=== PATIENT | female | born 1950 | race Caucasian/White ===

== ENCOUNTER → 2022-03-07 09:13 | Outpatient (CLI) | payer MEDICARE, OTHER, SELFPAY ==
[2022-03-07 09:54] LABS: Appearance Urine UA CLEAR; Bilirubin Urine UA NEGATIVE (NEGATIVE); Color Urine UA YELLOW; Glucose Urine UA NEGATIVE (Negative); Ketones Urine UA NEGATIVE (NEGATIVE); Leukocyte Esterase Urine UA 1+ (NEGATIVE); Nitrite Urine UA NEGATIVE (Negative); Occult Blood Urine UA NEGATIVE (Negative); Protein Urine UA NEGATIVE (Negative); Specific Gravity Urine UA <=1.005 (1.000-1.035); Urobilinogen Urine UA 0.2 E.U./dL (0.2)
[2022-03-07 10:11] LABS: Add Manual Diff / Slide Review NO; Basophils Absolute Auto 100 /uL (0-100); Basophils Percent Auto 0.9 % (0-2); Eosinophils Absolute Auto 200 /uL (0-450); Eosinophils Percent Auto 3.6 % (2-4); Hemoglobin 13.4 g/dL (12.0-16.0); Lymphocytes Absolute Auto 1600 /uL (1100-4500); Mean Corpuscular HGB Conc 33.6 % (30-36); Mean Corpuscular Hemoglobin 30.5 PG (26-34); Mean Corpuscular Volume 90.8 fL (80-100); Monocytes Absolute Auto 600 /uL (0-900); Neutrophils Absolute Auto 3400 /uL (1500-7000); Neutrophils Percent Auto 58.5 % (50-75); Platelet Count 298 X10^3/uL (150-400); Red Cell Distribution Width 12.7 % (11.6-14.8); White Blood Cell Count 5.8 X10^3/uL (4.5-11.0)
[2022-03-07 10:27] LABS: Bacteria Urine Occasional (0-1); Culture Indicated Urine Specimen Cultured; RBC Urine 0-1/HPF (0-5/HPF); Squamous Epithelial Cell Urine 1-5 /HPF (0-5/HPF); WBC Urine 0-1/HPF (0-5/HPF)
[2022-03-07 10:39] LABS: Hemoglobin A1C% w Est Avg Glu 5.7 % (4.0-6.0)
[2022-03-07 11:40] LABS: BUN Creatinine Ratio 31.9 (6-22); Blood Urea Nitrogen 22 mg/dL (7-17); Calcium 9.2 mg/dL (8.4-10.2); Carbon Dioxide 28 mmol/L (22-32); Chloride 102 mmol/L (98-107); Estimated Glomerular Filt Rate > 60 mL/min (>60); Glucose 110 mg/dL (80-110); HEMOLYSIS 17 (0-50); Potassium 4.3 mmol/L (3.4-5.1); Sodium 138 mmol/L (137-145)
== END ==
PROVIDERS: PCP Physician Assistant; Referring Provider Orthopaedic Surgery; Visit Provider Orthopaedic Surgery
DX: Z01.818 Encounter for other preprocedural examination (principal); R73.9 Hyperglycemia, unspecified; Z01.812 Encounter for preprocedural laboratory examination; N39.0 Urinary tract infection, site not specified
CPT/HCPCS: 36415; 80048; 81001; 83036; 85025; 87077; 87086; 87186; 93005; 93010

== ENCOUNTER → 2022-04-23 11:10 | Outpatient (CLI) | payer MEDICARE, OTHER, SELFPAY ==
[2022-04-23 11:37] LABS: COVID19 -Nasal RAPID Negative (Negative)
== END ==
PROVIDERS: PCP Physician Assistant; Referring Provider Orthopaedic Surgery; Visit Provider Orthopaedic Surgery
DX: Z20.822 Contact with and (suspected) exposure to COVID-19 (principal); Z11.59 Encounter for screening for other viral diseases
CPT/HCPCS: 87635; C9803

== ENCOUNTER 2022-04-25 14:34 | Observation (INO) | payer MEDICARE, OTHER, SELFPAY ==
[2022-04-16 08:20] VITALS: BMI 31.7
[2022-04-24] VITALS (12 sets, daily range): BP systolic 108–139; BP diastolic 52–76; PULSE 54–73; RESP 16–28; TEMP 35.2–37.3; O2SAT 94–100; BMI 31.7
--- NOTE | 2022-04-24 07:43 | DI.RAD.S_ITS ---
PROCEDURE: XR KNEE RT 1TO2V INDICATIONS: TKA TECHNIQUE: 2 view(s) of the knee acquired. COMPARISON: [facility] Titus Sullivan, CR, XR KNEE ARTHRITIC SERIES BI, 02/23/2022, 8:35. FINDINGS: Bones: Patient is status post knee joint arthroplasty. Hardware components are in expected positions. Visualized bony structures are intact. Soft tissues: Overlying postoperative changes are noted. IMPRESSION: Expected immediate postoperative appearance of left TKA. Dictated by: Obed OLSEN Interpreted: Marietta Robbins MD on 04/24/2022 at 16:19 Transcribed by: IAIN on 04/24/2022 at 16:19 Approved by: Marietta Robbins M.D. on 04/26/2022 at 7:35
[2022-04-24] MEDS: CELECOXIB 200 MG CAPSULE PO (12:55)
[2022-04-24] MEDS: ACETAMINOPHEN 325 MG TABLET 975 MG PO (12:56)
[2022-04-24] MEDS: VANCOMYCIN 1,000 MG/200 ML PIGGYBACK 200 MG IV (12:57)
[2022-04-24] MEDS: LACTATED RINGERS 1,000 ML 42 ML IV (12:58)
--- NOTE | 2022-04-24 13:14 | PM.PREOP ---
Pre-operative Note COVID-19 COVID-19 status: Negative Interval Note History & Physical reviewed/Exam performed by Physician: Yes Changes to H&P: No
--- NOTE | 2022-04-24 13:15 | P.OP_ITS ---
Operative Date/Time/Diagnoses Date of procedure: 04/24/22 Time of procedure: 13:55 Pre-op diagnosis: Severe right knee osteoarthritis Post-op diagnosis: same Procedure & Clinicians Procedure: Right total knee arthroplasty Same procedure as scheduled: Yes Indications: The patient has had progressively worsening right knee pain with radiographic changes consistent with arthritis. Non-operative management has failed and the patient has requested total knee replacement. The risks, benefits and alternatives to surgery were discussed with the patient prior to proceeding. Risks discussed included, but were not limited to, failure to relieve pain, stiffness, infection, nerve damage, deep venous thrombosis, pulmonary embolism, stroke, coma, heart attack, permanent paralysis and , as well as the potential need for eventual revision of the prosthetic. Surgeon: Eloise Alvarado Medical Insurance Claims Specialist: Yordan Hewitt Anesthesia Type: General and Spinal Operative Notes Findings: Severe right knee osteoarthritis Closure Type: primary Specimen(s): none sent Prosthetic devices, grafts, tissues, transplants, or devices: Alvarado [employer] Nephew Mirthaney BCS 2 size 5 femur, size 3 tibia, 32 x 7-1/2 mm patella, +9 poly Applied: drain(s) Estimated Blood Loss (mL): 250 Blood products transfused: none Tourniquet time (min): 76 Procedure in detail: The patient was seen in the pre-operative area, where the patient identified the right knee as the operative site and this was marked with my initials. The patient received pre-operative antibiotics, and was taken to the operating room and placed on the operative table in the supine position. After satisfactory anesthesia, a maritime engineer out was performed. The right leg was encircled with a tourniquet about the proximal thigh, and the leg was prepared from the toes to the tourniquet with ChloroPrep in the usual fashion and draped through sterile drapes. The leg was elevated and exsanguinated with Eschmark bandage and the indira rniquet inflated to [250] mmHg pressure. The knee was approached through an approximately 18 cm incision centered over the patella and carried into the knee through a medial parapatellar arthrotomy. A portion of the medial and lateral meniscus was resected. Soft tissue was carefully mobilized around the patella the patella was measured with a caliper. Bone was resected from the patella and the patellar height was reconstituted with up an appropriate sized patellar component. A cover was then placed on the patella. A small amount of additional medial and lateral meniscus was resected. There was a fly in the room. It did land on the drapes but not in the wound. That region was redraped. The fly was killed. The distal femur was cut at 5?. A [+2] cut was used. It looked like an appropr iate distal femoral cut and the cut was made without difficulty. An extramedullary guide was used for the tibial cut. 10 mm was resected off the least affected side.The tibia was prepared. The rotation was assessed. The patient was placed in extension residual medial and lateral meniscus as well as any residual bone was carefully resected. [No] additional tibia was resected. Hemostasis was achieved especially posteriorly. Additional local was injected into the posterior capsule. The extension gap was assessed and additional releases for gap balancing were performed as necessary. It was checked with the gap open hearth worker. The femoral component was trial was placed and the notch was finished. The rotation was assessed and the appropriate size femoral guide was placed on the distal femur and finishing cuts were made. There was no evidence of notching. The anterior, posterior and chamfer cuts were then made. The posterior osteophytes and soft tissues were then removed. The posterior capsule was injected with part of a mixture of 60 ml 0.25% Marcaine mixed with 20 ml Exparel for post operative pain control. The remainder of this mixture was injected into the capsule and subcutaneous tissues during cement curing. The tibial and femoral components were then placed and the knee placed through a range of motion. Range of motion was [0-130], with good stability throughout the range. The trials were then removed, and the tibia was finished. The bone was prepared with pulsatile lavage, and dried with a sponge. Cement was applied and the final prosthetics placed. Excess cement was removed during and after cement curing. A brief Betadine soak was performed. After confirming there was no extruded cement posteriorly, the final tibial insert was placed. The knee was copiously irrigated and the tourniquet deflated. Hemostasis was obtained with the bovie cautery. A drain was placed and brought out superolaterally. The capsule was closed with interrupted nonabsorbable suture. The subcutaneous layer was closed with barbed sutures, and the skin with a running 3-0 V-Lock suture and Surgical glue. An Aquacel Ag dressing was applied and the patient was taken to recovery having tolerated the procedure well. Complications: none Post-operative Condition: stable Disposition: Acute Care Plan for aftercare: The patient will be maintained on a standard total knee replacement protocol with weight bearing as tolerated. The patient will receive aspirin and sequential compression devices for DVT prophylaxis. The patient will be discharged home when safe for the home environment.
[2022-04-24] MEDS: CEFAZOLIN 2 GM/20 ML SYRINGE IV ×2 (13:45→22:41)
[2022-04-24] MEDS: TRANEXAMIC ACID 1,000 MG VIAL 1000 MG INJ ×2 (13:50→15:37)
--- NOTE | 2022-04-24 15:15 | SUR.OPER ---
Supine on padded OR bed. Pillow under head, arms secured on padded armboards <90 degree abduction. Safety belt across torso. Non-operative leg secured with tape over blanket over lower leg. Operative leg secured in DeMayo/Srinivasa/Nathe positioner. Foam padded hip family services manager brace at thigh of operative leg. Tourniquet padded and applied Directed and approved by surgeon
[2022-04-24] MEDS: BUPIVACAINE LIPOSOME 266 MG/20 ML VIAL INJ (15:35)
[2022-04-24] MEDS: BUPIVACAINE 0.5% W/ EPI (PF) 30 ML VIAL INJ (15:36)
--- NOTE | 2022-04-24 16:26 | SUR.PHASEI ---
Patient still denies any pain; sitting up drinking beverage. VSS. Awaiting transfer orders to floor.
[2022-04-24] MEDS: ONDANSETRON 4 MG/2 ML INJ IV (17:24)
[2022-04-24] MEDS: LACTATED RINGERS 1,000 ML 100 ML IV (17:24)
[2022-04-24] MEDS: ACETAMINOPHEN 325 MG TABLET 650 MG PO (17:57)
--- NOTE | 2022-04-24 18:57 | PC.NURSE ---
Ortho: Received from PACU. has no pain. Does have some nausea which improved with zofran. Minimal diet taken. No void since surgery. RA sats are 95% however pt reports she is feeling some air hunger. RT made aware and they are coming to eval her and set up cpap machine. Neurovascular intact. PPP, brisk cap refill. Dressing intact.
[2022-04-24] MEDS: METOPROLOL ER 25 MG TABLET PO (20:47)
[2022-04-24] MEDS: DOCUSATE 100 MG CAPSULE PO (20:47)
[2022-04-24] MEDS: ASPIRIN EC 81 MG TABLET PO (20:47)
[2022-04-24] MEDS: TRAMADOL 50 MG TABLET PO (22:45)
[2022-04-25] MEDS: ACETAMINOPHEN 325 MG TABLET 650 MG PO ×3 (01:29→12:55)
[2022-04-25 03:30] VITALS: BP 97/42; PULSE 58; RESP 17; TEMP 35.9; O2SAT 100
[2022-04-25 05:44] LABS: Hematocrit 32.2 % (36-46); Hemoglobin 11.1 g/dL (12.0-16.0)
[2022-04-25] MEDS: TRAMADOL 50 MG TABLET PO ×2 (06:08→12:56)
[2022-04-25] MEDS: CEFAZOLIN 2 GM/20 ML SYRINGE IV (06:09)
--- NOTE | 2022-04-25 07:44 | P.DS_ITS ---
History of Present Illness History of Present Illness Date Patient Seen: 04/25/22 Time Patient Seen: 07:45 Chief complaint: Knee pain Narrative: Right knee pain is mild. Denies fever or chills. No nausea vomiting. Patient has her home to assist her. Otherwise without complaints. Discharge Providers Provider Discharge Date: 04/25/22 Primary care physician: Alexandra Cintron PA-C Consults: 04/24/22 07:43 Consult to Anesthesiology Routine Comment: Consulting Provider: Anesthesiologist Reason for consultation: Regional block for post operative pain control 04/24/22 13:09 Consult to Respiratory Therapy Evaluate & Treat Comment: Physician Instructions: Evaluate and treat 04/24/22 16:46 Consult to Discharge Planning Routine Comment: Consult to Physical Therapy Evaluate & Treat Comment: Physician Instructions: postop TKA protocol Consult to Respiratory Therapy Evaluate & Treat Comment: Physician Instructions: Evaluate and treat Discharge provider: Yordan Hewitt PA-C Summary Hospital Course Discharge Diagnosis: Severe right knee osteoarthritis Hospital Course: Right total knee arthroplasty Same procedure as scheduled: Yes Indications: The patient has had progressively worsening right knee pain with radiographic changes consistent with arthritis. Non-operative management has failed and the patient has requested total knee replacement. The risks, benefits and alternatives to surgery were discussed with the patient prior to proceeding. Risks discussed included, but were not limited to, failure to relieve pain, stiffness, infection, nerve damage, deep venous thrombosis, pulmonary embolism, stroke, coma, heart attack, permanent paralysis and , as well as the potential need for eventual revision of the prosthetic. Surgeon: Eloise Alvarado Kennel Manager Dog Track: Yordan Hewitt Anesthesia Type: General and Spinal Operative Notes Findings: Severe right knee osteoarthritis Closure Type: primary Specimen(s): none sent Prosthetic devices, grafts, tissues, transplants, or devices: [employer] Nephew Journey BCS 2 size 5 femur, size 3 tibia, 32 x 7-1/2 mm patella, +9 poly Applied: drain(s) Estimated Blood Loss (mL): 250 Blood products transfused: none Tourniquet time (min): 76 Patient admitted to the hospital for right total knee arthroplasty. Patient consented to the same. Patient underwent right total knee arthroplasty on April 24, 2022. Patient back in her room recovering well as in stable condition. Patient will be discharged home after physical therapy if safe for home environment. Status at Discharge Cognitive/behavioral status at discharge: at baseline, oriented Functional status at discharge: uses cane/walker Overall status at discharge: patient is progressing back to baseline Exam Vital Signs (past 8 hours): - 04/25/22 03:30 Temperature 96.6 F L Pulse Rate 58 L Respiratory Rate 17 Blood Pressure 97/42 L Pulse Oximetry 100 Oxygen Flow Rate 0 Oxygen Delivery Method Room Air Oxygen Flow Rate 0 Narrative Exam Narrative: 72-year-old female resting comfortably in bed no apparent distress. Kareem dressing is on and functioning. Dressing is Clean, dry, intact.. Motor functions intact bilateral lower extremities. Sensation grossly intact to light touch bilateral lower extremities. 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) Headache Hearing impaired HTN (hypertension) Lichen planopilaris NEY (obstructive sleep apnea) Osteoarthritis Palpitations Pre-diabetes Seasonal allergies Sinus drainage SVT (supraventricular tachycardia) Surgical History History of arthroplasty of left knee (2015) History of hysterectomy History of lumpectomy of left breast (2019) Hx of arthroscopy of right knee (~2001) Social History household members: spouse Smoking Status: Never smoker alcohol intake: former Discharge Assessment & Plan Assessment and Plan Assessment: Patient progressing as expected status post right total knee arthroplasty Plan of Treatment: Mobilize with physical therapy, patient will be maintained on standard total knee protocol Multimodal pain management Discharge home today after physical therapy if safe for home environment. Discharge Plan Discharge Plan Patient Disposition: Home Provider Discharge Comment: Discharge home today after physical therapy Discharge orders & Medications Discharge Orders: Discharge (Order); Ordered 04/25/22 Ordered By: Yordan Hewitt Prescriptions: New acetaminophen 325 mg Tablet 650 mg PO Q6HR Qty: 60 0RF aspirin 81 mg Tablet,Delayed Release (Dr/Ec) 81 mg PO BID Qty: 60 0RF tramadol 50 mg Tablet 50 mg PO Q6H PRN (Reason: Pain, Moderate (4-6)) Qty: 60 0RF ibuprofen 400 mg Tablet 400 mg PO Q4HR Qty: 60 0RF Continued losartan 50 mg Tablet 50 mg PO DAILY cetirizine [Zyrtec] 10 mg Tablet 10 mg PO DAILY metoprolol succinate 25 mg Tablet Extended Release 24 Hr 25 mg PO BEDTIME letrozole 2.5 mg Tablet 2.5 mg PO DAILY albuterol sulfate [Ventolin HFA] 90 mcg/actuation Hfa Aerosol Inhaler 2 puff INHALATION Q4-6H PRN (Reason: Asthma) fluticasone propionate 250 mcg/actuation Blister With Device 1 inh INHALATION QAM Discontinued aspirin [Aspirin Low-Strength] 81 mg Tablet,Delayed Release (Dr/Ec) 81 mg PO DAILY acetaminophen 650 mg Tablet Extended Release 650 mg PO BID Follow up/Referrals: Alexandra Cintron [facility] [Primary Care Provider] - Eloise Alvarado MD [Physician] - (2 weeks) Diet/Activity/Treatments Diet: Diet as Tolerated Activity: Weight-bearing as tolerated Cold/Heat Therapy: Apply ice to knee as needed Skin/Wound/Dressing Care Report to your healthcare provider any signs of infection, such as:: chills, fever, increased pain, unusual drainage and unusual redness Dressing: Kareem dressing instructions reviewed. Keep dressing clean and dry Visit Report/Discharge Packet Instructions: DI for Knee Replacement Stand Alone Forms: Surgery Discharge Discharge Data Primary Care Provider: Alexandra Cintron Attending Provider: Eloise Alvarado VTE Deep Vein Thrombosis/Pulmonary Embolism Present on Admission: No
[2022-04-25 08:45] VITALS: BP 100/46; PULSE 51; RESP 16; TEMP 35.7; O2SAT 100
[2022-04-25] MEDS: IBUPROFEN 400 MG TABLET PO ×2 (09:00→12:56)
[2022-04-25] MEDS: ASPIRIN EC 81 MG TABLET PO (09:00)
[2022-04-25] MEDS: DOCUSATE 100 MG CAPSULE PO (09:01)
[2022-04-25] MEDS: LORATADINE 10 MG TABLET PO (09:01)
[2022-04-25] MEDS: LETROZOLE 2.5 MG TABLET PO (09:02)
[2022-04-25 09:06] VITALS: BP 100/46; PULSE 52
--- NOTE | 2022-04-25 09:06 | RT ---
Pt assessed. Pt refused breathing tx stating I do not need one at this time. No respiratory distress noted.
--- NOTE | 2022-04-25 10:24 | PT.IIE ---
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) Headache Hearing impaired HTN (hypertension) Lichen planopilaris NEY (obstructive sleep apnea) Osteoarthritis Palpitations Pre-diabetes Seasonal allergies Sinus drainage SVT (supraventricular tachycardia) Physical Therapy Inpatient Evaluation/Re-Eval M1 PT/OT-IP Prior Functional Status Start: 04/25/22 11:45 Freq: NEEDED Status: Active Protocol: Document 04/25/22 10:24 AB (Rec: 04/25/22 12:12 AB [id number]) Medical Review Prior Functional Status Medical History Reviewed Yes Communication able to make needs known Mobility and Gait pt staed that she is independent with all mobilities and ambulation without AD Social History Household Members spouse Living Arrangements House Number of Floors (Floors) One Floor Number of Stairs To Enter/Railing? 2 steps B rails to enter Home Environment Standard Height Toilet,Walk in Shower Home Equipment Front Wheel Walker,Straight Cane,Raised Toilet Seat w/ Armrests,Shower Seat with Backrest,Hand Held Shower,Grab Bars Near Toilet M2 PT-IP Current Condition Start: 04/25/22 11:45 Freq: NEEDED Status: Active Protocol: Document 04/25/22 10:24 AB (Rec: 04/25/22 12:12 AB [email or web address]) Physical Therapy Current Condition Current Condition Evaluation Date 04/25/22 Treatment Diagnosis s/p R TKA; difficulty in walking Onset Date 04/24/22 M3 PT-IP Subjective Start: 04/25/22 11:45 Freq: NEEDED Status: Active Protocol: Document 04/25/22 10:24 AB (Rec: 04/25/22 12:12 AB [email or web address]) Subjective Physical Therapy Visit Type Type Initial Evaluation Visit Start Time 10:24 Visit Stop Time 11:05 Total Visit Minutes 41 Number of TOOL ROOM LATHE OPERATOR Visits 0 Physical Therapy Visit Comments Patient Comments agreeable to do PT M4 PT-IP Mobility and Gait Start: 04/25/22 11:45 Freq: NEEDED Status: Active Protocol: Document 04/25/22 10:24 AB (Rec: 04/25/22 12:12 AB [email or web address]) PT-Bed Mobility Assessment Supine to Sit Supine to Sit Standby Assistance PT-Transfer Assessment Sit to and From Stand Sit to and from Stand Contact Guard Assistance,1 Person Assistance,2 Person Assistance Equipment Transfer Assistive Device Gait Belt,Front Wheeled Walker Orthotic/Prosthetic Devices or Brace: No Transfers Transfer Destination Chair Transfer Technique ambulated Transfer Ability Level of Assist Contact Guard Assistance,1 Person Assistance,Use of Upper Extremities Comments Mobility Comments BP in supine: 108/49. compelted supine to sit SBA. able to sit on EOB SBA. c/o lightheadedness. BP checked: 126/61. pt completed sit to stand CGA and ambulated to the chair using FWW CGA. pt sat on the chair. BP checked: 142 /52. caregiver training initiated. educated spouse on how to use safety belt and how to assist pt. spouse was able to put safety belt on and assisted pt with sit to stand. pt stated that she is getting oozy and has to sit down. BP checked: 96/49. positioned pt on the chair. informed nurse. call light and table placed within reach. Gait Assessment Gait Gait Assistance Required: Contact Guard Assist Distance (Feet) 12 Able to Maintain Weight Bearing Status Yes During Gait Assistive Devices Assistive Device Gait Belt,Front Wheeled Walker Orthotic/Prosthetic Devices or Brace: No Gait Deviations General Gait Pattern Decreased Stride Length, Decreased Feet Clearance Factors Limiting Gait Function Factors Limiting Gait Function Decreased Activity Tolerance, Decreased Strength,Pain,Poor Balance,Poor Safety Awareness PT-Balance Assessment Sitting Balance and Reactions Static Sitting Balance Ability Good Dynamic Sitting Balance Ability Good Standing Balance and Reactions Static Standing Balance Ability Fair Dynamic Standing Balance Ability Fair Device Used FWW M5 PT-IP Objective Assessments Start: 04/25/22 11:45 Freq: NEEDED Status: Active Protocol: Document 04/25/22 10:24 AB (Rec: 04/25/22 12:12 AB [email or web address]) Orientation Orientation/Cognition Level of Alertness Alert Orientation Name,Place,Situation Language Function Ability No Deficits Noted Safety Awareness Decreased Safety Awareness Memory Description No Deficits Noted Gross Range of Motion Lower Extremity ROM Assessment Right Impaired Impairments R knee flexion: ~ 70 deg Strength Lower Extremity Strength Assessment Right Impaired Hip 4-/5 Knee 4-/5 Coordination Assessment Gross Coordination Gross Coordination WNL Sensation Assessment Sensation Gross Sensation WNL Muscle Tone Muscle Tone WNL Yes M6 PT-IP Treatment Start: 04/25/22 11:45 Freq: NEEDED Status: Active Protocol: Document 04/25/22 10:24 AB (Rec: 04/25/22 12:12 AB [email or web address]) Physical Therapy Treatment Education Education Provided Precautions,Weight Bearing Status,Post-Op Packet,Safety M7 PT-IP Assessment and Plan Start: 04/25/22 11:45 Freq: NEEDED Status: Active Protocol: Document 04/25/22 10:24 AB (Rec: 04/25/22 12:12 AB [email or web address]) PT Summary Assessment and Plan Potential Rehabilitation Potential Good Status of Condition at Evaluation Evolving Summary Impairments Pain,ROM,Strength,Balance, Coordination,Sensation,Tone, Cognition,Bed Mobility, Transfers,Gait,Activity Tolerance Assessment Summary pt requiring CGA with mobility and caregiver training was initiated but pt with c/o lightheadedness/ooziness with decrease in BP with mobility and unable to tolerate further activity. will attempt again in the afternoon and conduct further caregiver training. pt also needs to complete stair climbing training prior to d/c. will continue to assess. Goals Bed Mobility Goal Independent Transfer Goal Independent,Front Wheeled Walker Gait Goal Independent,Front Wheel Walker Gait Distance 200 Other Goals up/down 2 steps B rails SBA Days to Meet Goals 10 Frequency of Treatment Frequency Of Treatment Twice a Day Treatment Plan Physical Therapy Treatment Plan Bed Mobility Training,Transfer Training,Gait Training, Therapeutic Exercise,Balance Retraining,Post Op Education, Discharge Planning,Hot or Cold Pack,Neuromuscular Re-ed, Coordination Retraining,Manual Therapy Weight Bearing Status Weight Bearing Status Weight Bear as Tolerated Allowed Weight Bearing Amount (enter % RLE WBAT or #) (%) Recommendations To Nursing Amount of Assist Needed 1 Person Assist Discharge Recommendations PT Discharge Recommendations Home with Assistance, Outpatient PT Transportation Needs at Discharge Private Vehicle
--- NOTE | 2022-04-25 10:59 | CM.DANOTE ---
DCP/Assessment: Reviewed chart. Patient is a 72yr old female admitted to [facility] for elective right TKA performed on 04-24-[address] Alvarado. PCP is Alexandra Cintron. Primary payor is 1)Medicare 2)[facility]. Met with patient and spouse/Tommie at bedside explained CM/SW role. Patient reports that she plans to d/c home today after she is seen by therapy. Patient has had orthopedic surgery in the past and reports that this is not new to her. Patient has all needed DME and outpatient therapy arranged. P: Anticipate d/c home today. KJS Discharge Planning/Care Management CM Discharge Assessment Start: 04/25/22 10:51 Freq: Status: Active Protocol: Document 04/25/22 10:52 KJS (Rec: 04/25/22 10:59 KJS [id number]) Discharge Planning Assessment Assigned Patching Machine Operator SHARAN Sigala Contact Information Tommie Barrientos # [phone] (spouse) Advance Directives on File No History Provided By Patient,Significant Other Prior Living Arrangements House Household Members spouse Type of transporation used prior to Drives own vehicle admit Independent with ADL's Yes Is patient alert and oriented? Yes Caregiver for Another No DME Already Rented / Owned FWW / Walker Comment Patient has all needed DME at her residence. Patient/Family Preference OP PT Therapy Comment Outpatient PT arranged in [place] on April 30. Barriers to Discharge No Discharge Plan Home Transportation Arrangement Family to provide transport. Referrals Initiated None needed Whiteboard Updated in Patient Room with Yes name and ext. # of Patching Machine Operator Review Status In Process Next Review Type Continued Stay Review Pre-Anesthesia Assessment Start: 04/16/22 08:20 Freq: Status: Complete Protocol: Document 04/16/22 08:20 CAB (Rec: 04/16/22 09:42 CAB [id number]) Pre-Anesthesia Assessment Patient Information Reviewed Via Phone Assessment Assessment Completed With Patient Diagnostic Results BMP/CMP,CBC,EKG,Urinalysis Comment Labs/ECG @ 03/07/22, COVID screen @ 04/23/22 Primary Care Provider Alexandra Cintron Seen Specialist in Last 12 Months Yes Specialist Seen Full Stack Python Developer,Supervisor Coating, Oncologist,Orthopedist,Other Primary Language Tanzanian Director Dermatology Required No Height 162.56 cm Weight 83.915 kg Body Mass Index (BMI) 31.7 Hearing Ability Hard of Hearing Visual Assist Glasses Dentition Type Teeth, Natural Present,Teeth, Missing,Dental Implants Barriers to Learning None Other Aids Yes: CPAP Hx Anesthesia Reactions Yes: PONV-urinary issues/ incontinence w/prior spinal Hx Family Anesthesia Reaction No Hx Malignant Hyperthermia No Hx Blood Transfusions No Anesthesia Review Requested No alcohol intake former Smoking Status Never smoker Substance Use Type does not use Pain Present Pain Reported Musculoskeletal Symptoms Abnormal Gait,Back Pain, Difficulty Walking,Joint Pain, Neck Pain History of Falling (Recent or History of No ) Patient is completely paralyzed or No completely immobile Mental Status Oriented to own ability Comment Balance difficulties with stairs, uneven surfaces Is patient on oxygen? No Does patient have CRAIG/SOB No: Denies anything present Hx Sleep Apnea Yes CPAP/BIPAP use prescribed and used routinely Will Bring CPAP/BIPAP DOS Yes Currently Taking a Beta Nash Yes: Metoprolol Can You Climb a Flight of Stairs Without Yes SOB Hx Chest Pain No Hx SOB No: Denies anything present Hx Syncope or Dizziness Yes: Occasional dizziness r/t allergies Anti-Coagulant Therapy No Has a Full Stack Python Developer Yes: Dr. Berkowitz-visit 01/18/22 Cardiac Testing No Hx Pacemaker/ICD No Pacemaker Rep Required? 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 Received a COVID vaccine? Yes Received all doses? Yes Marital Status Lives With spouse Prior Living Arrangements House Number of Floors (Floors) One Floor Support System Spouse Does the Patient Have Assistance After Yes Surgery Patient Discharge Plan Description Return Home Comment Pt advised overnight length of stay per surgeon Feels Safe in Current Environment Yes Been Physically Hurt or Threatened By a No Person in Current Environment Do you have thoughts of harming yourself None or others? Are you currently considering suicide? No Do you have a plan to hurt yourself or No Plan others? Do You Have Any Spiritual Beliefs That No May Affect Your HC Choices? Do You Have Any Cultural Practices That No May Affect Your HC Choices? Comment Dimitris Who Can We Speak to About Patient's Care Family, friends Identifying Code for Release of Patient Declines to issue Information Health Care Proxy/Next of Kin Tommie () Health Care Proxy Emergency Contact Name Tommie () Emergency Contact Advance Directives? Yes Advance Directives on File No Requested Patient Bring Advanced Yes Directives DOS Power of Travel Trailer Components Assembler Name Tommie () Power of Travel Trailer Components Assembler PAC Instructions Bring CPAP/BIPAP,Do not shave/ clip surgical site,Durable medical equipment,Medications to take/avoid,Nasal antibiotic ,No ETOH/petroleum product on skin DOS,NPO,Post-op transportation,Pre-surgical wash,Sturdy shoes/comfortable clothes,Do not bring valuables and remove jewelry
[2022-04-25 11:55] VITALS: BP 95/47; PULSE 52; RESP 16; TEMP 36.2; O2SAT 100
--- NOTE | 2022-04-25 13:41 | PT.IPTN ---
Current Diagnoses Unilateral primary osteoarthritis, right knee (04/25/22) Surgery Performed Operation Date: 04/24/22 14:30 Actual Procedures p Total Knee Arthroplasty(Right) - Eloise Alvarado MD Physical Therapy Treatment Note M2 PT-IP Current Condition Start: 04/25/22 11:45 Freq: NEEDED Status: Active Protocol: Document 04/25/22 10:24 AB (Rec: 04/25/22 12:12 AB [id number]) Physical Therapy Current Condition Current Condition Evaluation Date 04/25/22 Treatment Diagnosis s/p R TKA; difficulty in walking Onset Date 04/24/22 M3 PT-IP Subjective Start: 04/25/22 11:45 Freq: NEEDED Status: Active Protocol: Document 04/25/22 13:09 KS (Rec: 04/25/22 15:06 KS [id number]) Subjective Physical Therapy Visit Type Type Treatment Note Visit Start Time 13:09 Visit Stop Time 13:41 Total Visit Minutes 32 Number of PLASTER MOLD MAKER Visits 1 Physical Therapy Visit Comments Patient Comments agreeable to do PT, present for caregiver training . M4 PT-IP Mobility and Gait Start: 04/25/22 11:45 Freq: NEEDED Status: Active Protocol: Document 04/25/22 13:09 KS (Rec: 04/25/22 15:06 KS [id number]) PT-Bed Mobility Assessment Sit to Supine Sit to Supine Standby Assistance Scooting Scooting to Edge of Bed Standby Assistance PT-Transfer Assessment Sit to and From Stand Sit to and from Stand Contact Guard Assistance,1 Person Assistance,Use of Upper Extremities Equipment Transfer Assistive Device Gait Belt,Front Wheeled Walker Orthotic/Prosthetic Devices or Brace: No Transfers Transfer Destination Bed,Wheelchair Transfer Technique ambulated Transfer Ability Level of Assist Contact Guard Assistance,1 Person Assistance,Use of Upper Extremities Comments Mobility Comments Pt in chair upon arrival w/ in room. Pts BP sittin/57. Pts applied gaitbelt. Pt sit<> Stand w/ FWW CGA, pts assisted. BP standing 146/57. She then ambulated ~20 ft and returned to chair and BP 135/ 42 standing. Pt took seated rest break and then ambulated to w/c for energy conservation for stairs. BP 124/71 standing. Pt ascended/ descended 3 steps w/ BHR and step to pattern w/ providing CGA and cues. Pt took w/c most distance back to room but ambulated final ~40 ft w/ FWW CGA. She returned to bed SBA and BP 129/62. Pt and feel safe to return home. Gait Assessment Gait Gait Assistance Required: Contact Guard Assist Distance (Feet) 40 Able to Maintain Weight Bearing Status Yes During Gait Assistive Devices Assistive Device Gait Belt,Front Wheeled Walker Orthotic/Prosthetic Devices or Brace: No Gait Deviations General Gait Pattern Decreased Stride Length, Decreased Feet Clearance Factors Limiting Gait Function Factors Limiting Gait Function Decreased Activity Tolerance, Decreased Strength,Pain,Poor Balance,Poor Safety Awareness Comments Gait Comments God use of FWW, no LOB. Stair Climbing Assessment Evaluation Level of Assist On Stairs Contact Guard Assistance,1 Person Assistance Devices Stair Climbing Assistive Devices Left Railing,Right Railing Technique/Endurance Stair Climbing Direction Ascend and Descend Stair Climbing Technique Step to Step Number of Steps Climbed 3 Stair Climbing Set # Repetitions (reps) 1 Comments Stair Climbing Comments Pt ascended/descended 3 steps w/ BHR and step to pattern w/ CGA provided by her . Pt and feel safe to complete steps going into home . PT-Balance Assessment Sitting Balance and Reactions Static Sitting Balance Ability Good Dynamic Sitting Balance Ability Good Standing Balance and Reactions Static Standing Balance Ability Fair Dynamic Standing Balance Ability Fair Device Used FWW M5 PT-IP Objective Assessments Start: 04/25/22 11:45 Freq: NEEDED Status: Active Protocol: Document 04/25/22 10:24 AB (Rec: 04/25/22 12:12 AB [id number]) Orientation Orientation/Cognition Level of Alertness Alert Orientation Name,Place,Situation Language Function Ability No Deficits Noted Safety Awareness Decreased Safety Awareness Memory Description No Deficits Noted Gross Range of Motion Lower Extremity ROM Assessment Right Impaired Impairments R knee flexion: ~ 70 deg Strength Lower Extremity Strength Assessment Right Impaired Hip 4-/5 Knee 4-/5 Coordination Assessment Gross Coordination Gross Coordination WNL Sensation Assessment Sensation Gross Sensation WNL Muscle Tone Muscle Tone WNL Yes M6 PT-IP Treatment Start: 04/25/22 11:45 Freq: NEEDED Status: Active Protocol: Document 04/25/22 13:09 KS (Rec: 04/25/22 15:06 KS [id number]) Physical Therapy Treatment Education Education Provided Precautions,Weight Bearing Status,Post-Op Packet,Safety M7 PT-IP Assessment and Plan Start: 04/25/22 11:45 Freq: NEEDED Status: Active Protocol: Document 04/25/22 13:09 KS (Rec: 04/25/22 15:06 KS [id number]) PT Summary Assessment and Plan Potential Rehabilitation Potential Good Status of Condition at Evaluation Evolving Summary Impairments Pain,ROM,Strength,Balance, Coordination,Sensation,Tone, Cognition,Bed Mobility, Transfers,Gait,Activity Tolerance Assessment Summary Pt SBA to CGA for mobility w/ stable BP during treatment and successfully completed caregiver training. Pt ablw to ambulate ~40 ft and ascend/descend 3 steps w/ CGA and cues. Pt feels eager and ready to return home w/ husbands assist. She will benefit from OPPT to improve ROM, strength, stability, and gait. Goals Bed Mobility Goal Independent Transfer Goal Independent,Front Wheeled Walker Gait Goal Independent,Front Wheel Walker Gait Distance 200 Other Goals up/down 2 steps B rails SBA Days to Meet Goals 10 Frequency of Treatment Frequency Of Treatment Twice a Day Treatment Plan Physical Therapy Treatment Plan Bed Mobility Training,Transfer Training,Gait Training, Therapeutic Exercise,Balance Retraining,Post Op Education, Discharge Planning,Hot or Cold Pack,Neuromuscular Re-ed, Coordination Retraining,Manual Therapy Weight Bearing Status Weight Bearing Status Weight Bear as Tolerated Allowed Weight Bearing Amount (enter % RLE WBAT or #) (%) Recommendations To Nursing Amount of Assist Needed 1 Person Assist Discharge Recommendations PT Discharge Recommendations Home with Assistance, Outpatient PT Transportation Needs at Discharge Private Vehicle
--- NOTE | 2022-04-25 18:15 | PC.NURSE ---
Discharge: Pt feeling a little weak and dizzy this am. BP meds were held. (PA aware) Feeling better after last time up and decided she could go home. Seen by PA and given instructions, seen by PT and given instructions. SAMMY dressing instructions given and understood. SAMMY green light is flashing. Tolerates diet w/out problems. Po pain meds effective.Vds w/out diff. Reviewed BP parameters, hold med until bp improves, most likely in a day or two. Reviewed discharge packet. Questions answered. Rx has been esent. Pt d/c to home via auto with spouse.
== END 2022-04-25 15:00 | disposition home or self-care (01) ==
LOC: OR 14:36 → AC 14:36
PROVIDERS: Admitting Provider Orthopaedic Surgery; PCP Physician Assistant; Referring Provider Orthopaedic Surgery; Visit Provider Orthopaedic Surgery
PROC: 0SRC0JZ Replacement of Right Knee Joint with Synthetic Substitute, Open Approach (ICD-10-PCS; CPT 27447; principal; 2022-04-24 14:30)
DX: M17.11 Unilateral primary osteoarthritis, right knee (principal); J45.20 Mild intermittent asthma, uncomplicated; E66.9 Obesity, unspecified; Z68.32 Body mass index [BMI] 32.0-32.9, adult
CPT/HCPCS: 27447; 36415; 73560; 85014; 85018; 97116; 97162; 97530; C1776; G0378; C1713; C9290; J0690; J1100; J2250; J2274; J2405; J2704; J3010